=== PATIENT | male | born 1990 | race Caucasian/White ===

== ENCOUNTER → 2021-02-09 | Outpatient (CLI) | payer SELFPAY ==
[2021-02-11 11:51] LABS: Hepatitis B Surface AB- Quant >1000.0 mIU/mL; Hepatitis B Surface Antibody Reactive (Non-Reactive)
== END | disposition home or self-care (01) ==
LOC: EDSTATUS 10:17 → LABPRL 18:46
PROVIDERS: ATTEND Emergency Medicine
DX: Z20.1 Contact with and (suspected) exposure to tuberculosis (principal)
CPT/HCPCS: 86480; 86706